=== PATIENT | male | born 1935 | race Hispanic/Latino ===

== ENCOUNTER 2025-05-31 15:47 | Inpatient (IN) | payer MEDICARE ==
[~2025-05-31] VITALS: Ht 170.2 cm; Wt 74.8 kg
[2025-05-31] MEDS ORDERED: LACTATED RINGER S IV SCH (16:00)
[2025-05-31] MEDS ORDERED: Morphine 4mg INJECTION 4 MG/ML INJ IV PRN (16:15)
[2025-05-31] MEDS ORDERED: LIDOCAINE 4% PATCH TP PRN (16:15)
[2025-05-31] MEDS ORDERED: ONDANSETRON HCL INJ 2MG/ML 2ML 2 MG/ML VIAL IV PRN (16:15)
[2025-05-31] MEDS ORDERED: DEXTROSE 50% SYRINGE 50 ML IV PRN (16:15)
[2025-05-31] MEDS ORDERED: DOCUSATE SODIUM 100 MG CAP PO PRN (16:15)
[2025-05-31] MEDS ORDERED: BENZONATATE 100 MG CAP PO PRN (16:15)
[2025-05-31] MEDS ORDERED: SIMETHICONE 80 MG CHEW PO PRN (16:15)
[2025-05-31] MEDS ORDERED: ALBUTEROL/IPRATROPIUM 3 ML NEB NEB PRN (16:15)
[2025-05-31] MEDS ORDERED: MELATONIN 5 MG TABLET PO PRN (16:15)
[2025-05-31] MEDS ORDERED: HYDRALAZINE HCL 20 MG/ML VIAL IV PRN (16:15)
[2025-05-31] MEDS ORDERED: DIPHENHYDRAMINE HCL 25 MG CAP PO PRN (16:15)
[2025-05-31 16:19] LABS: BASOPHILS % 0.2 % (0.0-1.0); EOSINOPHILS % 0.6 % (0.0-6.0); LYMPHOCYTES % 11.8 % (18.0-39.1); MONOCYTES % 11.1 % (4.4-11.3); NEUTROPHILS % 75.8 % (38.7-80.0); RED CELL DISTRIBUTION WIDTH 16.6 % (11.7-14.4)
[2025-05-31] MEDS ORDERED: PIPERACILLIN/TAZOBACTAM 3.375 GM VIAL ONE (16:19)
[2025-05-31 16:36] LABS: INR 0.98
[2025-05-31 16:43] LABS: EST GLOMERULAR FILTRATION RATE 83.0 ML/MIN (>=60)
[2025-05-31] MEDS: LACTATED RINGER'S 1,000 ML IV ONE (16:56)
[2025-05-31 17:49] VITALS: TEMP 99.1
[2025-05-31 18:15] VITALS: PULSE 88; RESP 16
[2025-05-31 19:03] VITALS: BP 136/67; PULSE 92; RESP 18; TEMP 98.2; O2SAT 97
[2025-05-31 20:00] VITALS: BP 136/67; PULSE 92; RESP 18; TEMP 98.2; O2SAT 97
[2025-05-31] MEDS: DEXTROSE 5%/0.9% SOD CHL 1,000 ML IV SCH (22:31)
[2025-05-31 23:19] VITALS: BP 136/75; PULSE 75; RESP 20; TEMP 98.2; O2SAT 96
[2025-06-01] VITALS (7 sets, daily range): BP systolic 112–149; BP diastolic 41–79; PULSE 63–83; RESP 16–20; TEMP 97.6–98.1; O2SAT 94–98
[2025-06-01] MEDS ORDERED: BISOPROLOL-HCT1 EAC1 PO (00:14)
[2025-06-01] MEDS ORDERED: NEXIUM40 MG PO (00:15)
[2025-06-01 06:05] LABS: CHOL/HDL RATIO 4.4 (3.9-4.7); EST GLOMERULAR FILTRATION RATE 85.0 ML/MIN (>=60); LDL CHOLESTEROL 44.0 MG/DL (60-130)
[2025-06-01] MEDS: PANTOPRAZOLE SOD 40 MG TABEC PO SCH (07:30)
[2025-06-01] MEDS ORDERED: NEOSTIGMINE 1 MG/ML 10ML VIAL ONE (12:31)
[2025-06-01] MEDS ORDERED: LIDOCAINE HCL 2% LOCAL INJ 5 ML SDV VIAL INJ ONE (12:31)
[2025-06-01] MEDS ORDERED: ETOMIDATE 40 MG/ 20ML VIAL IV ONE (12:31)
[2025-06-01] MEDS ORDERED: ONDANSETRON HCL INJ 2MG/ML 2ML 2 MG/ML VIAL ONE (12:31)
[2025-06-01] MEDS ORDERED: FENTANYL CITRATE/PF 100MCG/2 ML INJ ONE (12:31)
[2025-06-01] MEDS ORDERED: GLYCOPYRROLATE INJ 0.2 MG/ML VIAL ONE (12:31)
[2025-06-01] MEDS ORDERED: ROCURONIUM BROMIDE 1 ML IV ONE (12:31)
[2025-06-01] MEDS ORDERED: SUCCINYLCHOLINE CHLORIDE 20 MG/ML 10ML VIAL ONE (12:34)
[2025-06-01] MEDS ORDERED: DOPAmine/D5W 1.6 MG/ML 400 MG/250ML PREMIX IV ONE (12:59)
[2025-06-01] MEDS ORDERED: NITROGLYCERIN/D5W 200 MCG/ML 50 MG/250 ML BTL ONE (12:59)
[2025-06-01] MEDS ORDERED: SUGAMMADEX SODIUM 200 MG/2 ML VIAL IV ONE (13:24)
[2025-06-01] MEDS ORDERED: ACETAMINOPHEN 1000 MG/100 ML 100 ML IV ONE (13:25)
[2025-06-01] MEDS ORDERED: LABETALOL HCL 20 ML ONE (13:32)
[2025-06-01] MEDS ORDERED: ONDANSETRON HCL INJ 2MG/ML 2ML 2 MG/ML VIAL IV PRN (14:15)
[2025-06-01] MEDS ORDERED: HYDROCODONE/APAP 5MG-325MG TAB PO PRN (14:15)
[2025-06-01] MEDS: FENTANYL CITRATE/PF 100MCG/2 ML INJ ONE (14:28)
[2025-06-01] MEDS: SODIUM CHLORIDE 0.9% 1000ML 1,000 ML IV SCH (16:44)
[2025-06-01] MEDS: KETOROLAC TROMETHAMINE 30 MG/ML VIAL IV SCH (17:25)
[2025-06-02] VITALS (10 sets, daily range): BP systolic 97–141; BP diastolic 44–62; PULSE 67–79; RESP 18–20; TEMP 97.6–98.9; O2SAT 93–98
[2025-06-02 05:55] LABS: BASOPHILS % 0.2 % (0.0-1.0); EOSINOPHILS % 2.1 % (0.0-6.0); LYMPHOCYTES % 12.5 % (18.0-39.1); MONOCYTES % 12.3 % (4.4-11.3); NEUTROPHILS % 72.4 % (38.7-80.0); RED CELL DISTRIBUTION WIDTH 16.7 % (11.7-14.4)
[2025-06-02 06:25] LABS: EST GLOMERULAR FILTRATION RATE 83.0 ML/MIN (>=60)
[2025-06-02] MEDS: ENOXAPARIN SOD INJ 40 MG/0.4 ML SYR SC SCH (09:07)
[2025-06-02] MEDS: POTASSIUM CHLORIDE 20 MEQ TAB CR PO PRN (09:56)
[2025-06-02] MEDS: ACETAMINOPHEN 325 MG TAB PO PRN (20:42)
[2025-06-03] VITALS (9 sets, daily range): BP systolic 107–132; BP diastolic 45–60; PULSE 70–79; RESP 17–20; TEMP 97.7–98.2; O2SAT 93–98
[2025-06-03 06:30] LABS: BASOPHILS % 0.3 % (0.0-1.0); EOSINOPHILS % 2.4 % (0.0-6.0); LYMPHOCYTES % 12.1 % (18.0-39.1); MONOCYTES % 13.3 % (4.4-11.3); NEUTROPHILS % 70.4 % (38.7-80.0); RED CELL DISTRIBUTION WIDTH 17.0 % (11.7-14.4)
[2025-06-03 06:42] LABS: EST GLOMERULAR FILTRATION RATE 71.0 ML/MIN (>=60)
[2025-06-04] VITALS: BP 132/52; PULSE 80; RESP 19; TEMP 97.6; O2SAT 94
[2025-06-04 08:30] VITALS: BP 171/67; PULSE 76; RESP 20; TEMP 98.2; O2SAT 94
[2025-06-04 08:43] VITALS: BP 171/67; PULSE 76; RESP 20; TEMP 98.2; O2SAT 98
[2025-06-04 09:00] VITALS: BP 171/67; PULSE 76; RESP 20; TEMP 98.2; O2SAT 98
[2025-06-04 10:30] VITALS: PULSE 92; RESP 16; O2SAT 93
[2025-06-04 12:00] VITALS: BP 142/82; PULSE 79; RESP 18; TEMP 98.4; O2SAT 98
== END 2025-06-04 16:22 | disposition home or self-care (01) | DRG 418 ==
LOC: ER 15:57 → ERHOLD 17:38 → MED/SURG2 19:41
PROVIDERS: ADMIT Internal Medicine; ATTEND Internal Medicine
PROC: 0FT44ZZ Resection of Gallbladder, Percutaneous Endoscopic Approach (ICD-10-PCS; principal; 2025-06-01 13:01)
DX: K80.00 Calculus of gallbladder with acute cholecystitis without obstruction (principal); E87.1 Hypo-osmolality and hyponatremia; K82.A1 Gangrene of gallbladder in cholecystitis; E86.0 Dehydration; E66.9 Obesity, unspecified; I10 Essential (primary) hypertension; J44.9 Chronic obstructive pulmonary disease, unspecified; K29.80 Duodenitis without bleeding; I25.10 Atherosclerotic heart disease of native coronary artery without angina pectoris; Z87.891 Personal history of nicotine dependence; Z88.8 Allergy status to other drugs, medicaments and biological substances; Z85.46 Personal history of malignant neoplasm of prostate
CPT/HCPCS: 36415; 76705; 80048; 80053; 80061; 83036; 83605; 83690; 83735; 84443; 85025; 85610; 85730; 86850; 86900; 87040; 88304; 93005; 93306; 94799; 96361; 99252; 99284; J0330; J1650; J1885; J2003; J2405; J2470; J2543; J2710; J7030; J7042